=== PATIENT | male | born 1950 | race Caucasian/White ===

== ENCOUNTER 2017-10-29 09:09 | Emergency (ER) | payer OTHER, MEDICARE ==
[~2017-10-29] VITALS: Ht 170.2 cm; Wt 103.0 kg
[~2017-10-29 09:09] MED LIST: DORZ1SOL2 EACH EYE; EYEDROPS; ISOP1SOL2 RIGHT EYE; NORV5TAB PO; PRED1%O RIGHT EYE; XALA0.00 EACH EYE
[2017-10-29 09:17] VITALS: BP 177/73; PULSE 88; RESP 14; TEMP 98.4; O2SAT 97
[2017-10-29] MEDS ORDERED: BRIM.15%O EACH EYE (09:30)
[2017-10-29] MEDS ORDERED: TIMO0.5S30 EACH EYE (09:30)
[2017-10-29] MEDS ORDERED: AMLO5TAB2 PO (09:30)
[2017-10-29] MEDS ORDERED: ASPI-183 PO (09:35)
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
[2017-10-29 10:02] LABS: AUTOMATED NEUTROPHIL # 7.4 TH/MM3 (1.8-7.7); BASOPHIL % 0.4 % (0.0-2.0); EOSINOPHIL # 0.3 TH/MM3 (0-0.4); EOSINOPHIL % 2.9 % (0.0-4.0); HEMATOCRIT 42.8 % (39.0-51.0); HEMOGLOBIN 14.3 GM/DL (13.0-17.0); LYMPH % 21.5 % (9.0-44.0); LYMPHOCYTE # 2.3 TH/MM3 (1.0-4.8); MEAN CORPUSCULAR HEMOGLOBIN 31.4 PG (27.0-34.0); MEAN CORPUSCULAR HGB CONC 33.4 % (32.0-36.0); MEAN PLATELET VOLUME 8.8 FL (7.0-11.0); MONO % 7.8 % (0.0-8.0); MONOCYTE # 0.8 TH/MM3 (0-0.9); NEUT % 67.4 % (16.0-70.0); PLATELET COUNT 245 TH/MM3 (150-450); RED BLOOD COUNT 4.55 MIL/MM3 (4.50-5.90); RED CELL DISTRIBUTION WIDTH 12.6 % (11.6-17.2); WHITE BLOOD COUNT 10.8 TH/MM3 (4.0-11.0)
[2017-10-29 10:12] LABS: BICARBONATE 28.2 MEQ/L (21.0-32.0); CALCIUM 8.9 MG/DL (8.5-10.1)
[2017-10-29 10:16] LABS: CREATININE 1.1 MG/DL (0.60-1.30)
[2017-10-29] MEDS ORDERED: IOHEXOL 350 MG/ML 10 ML VIAL (for RAD DIAG) IVCONTRAST ONE (10:40)
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
--- NOTE | 2017-10-29 13:48 | EKG ---
Date Performed: 10/29/2017 Time Performed: 09:39:54 PTAGE: 67 years EKG: Sinus rhythm WITH OCCASIONAL VENTRICULAR PREMATURE COMPLEXES POSSIBLE INFERIOR MYOCARDIAL INFARCTION Nonspecific T wave changes BORDERLINE ECG NO PREVIOUS TRACING DOCTOR: Aureliano De Leon Interpretating Date/Time 10/29/2017 13:47:39
== END 2017-10-29 12:03 | disposition home or self-care (01) ==
LOC: PHED 09:09
DX: S20.219A Contusion of unspecified front wall of thorax, initial encounter (principal); I10 Essential (primary) hypertension; F17.210 Nicotine dependence, cigarettes, uncomplicated; R94.31 Abnormal electrocardiogram [ECG] [EKG]; V49.49XA Driver injured in collision with other motor vehicles in traffic accident, initial encounter; Y92.410 Unspecified street and highway as the place of occurrence of the external cause; Z79.82 Long term (current) use of aspirin
CPT/HCPCS: 71260; 80048; 85025; 93005; 99285; Q9967